=== PATIENT | male | born 1935 ===

== ENCOUNTER 2017-10-19 11:20 | Outpatient (CLI) | payer OTHER ==
[~2017-10-19] VITALS: Ht 152.4 cm; Wt 68.9 kg
== END 2017-10-19 11:45 | disposition home or self-care (01) ==
LOC: OFIC 805 11:20
DX: H61.23 Impacted cerumen, bilateral (principal); H60.8X3 Other otitis externa, bilateral; J31.0 Chronic rhinitis; H90.3 Sensorineural hearing loss, bilateral

== ENCOUNTER 2018-04-15 12:07 | Emergency (ER) | payer OTHER ==
[~2018-04-15] VITALS: Ht 157.5 cm; Wt 58.5 kg
[2018-04-15] MEDS ORDERED: LASIX20 MG (13:06)
[2018-04-15] MEDS ORDERED: PREDNISONE5 M1 (13:07)
[2018-04-15] MEDS ORDERED: ADCIRCA20 MG (13:07)
[2018-04-15] MEDS ORDERED: XARELTO20 MG (13:07)
[2018-04-15] MEDS ORDERED: TOPROL XL100 M1 (13:08)
[2018-04-15] MEDS ORDERED: GABAPENTIN100 MG (13:09)
[2018-04-15] MEDS ORDERED: PLAQUENIL 200MG (13:09)
[2018-04-15] MEDS ORDERED: ZYLOPRIM100 MG (13:09)
[2018-04-15] MEDS ORDERED: ALDACTONE25 MG (13:09)
[2018-04-15] MEDS ORDERED: ORENCIA50 MG/0.4 (13:10)
[2018-04-15] MEDS ORDERED: LIPITOR40 MG (13:10)
[2018-04-15] MEDS ORDERED: GABAPENTIN300 MG (13:11)
== END 2018-04-15 14:52 | disposition home or self-care (01) ==
LOC: ER 12:07
DX: S30.0XXA Contusion of lower back and pelvis, initial encounter (principal); G89.11 Acute pain due to trauma; W18.39XA Other fall on same level, initial encounter; Y93.89 Activity, other specified; Y92.89 Other specified places as the place of occurrence of the external cause; Y99.8 Other external cause status